=== PATIENT | female | born 1975 | race Native Hawaiian/Other Pacific Islander ===

== ENCOUNTER 2016-10-20 18:30 | Emergency (ER) | payer OTHER ==
[~2016-10-20] VITALS: Ht 170.2 cm; Wt 59.9 kg
[2016-10-20 19:14] VITALS: BP 148/96; TEMP 98.3
== END 2016-10-20 19:17 | disposition home or self-care (01) ==
LOC: ED 18:30
DX: L55.9 Sunburn, unspecified (principal); L29.8 Other pruritus
CPT/HCPCS: 99281

== ENCOUNTER → 2017-03-14 10:17 | Outpatient (CLI) | payer OTHER | END | disposition short-term general hospital (02) | LOC: AMB 10:17 | DX: M25.512 Pain in left shoulder (principal) ==

== ENCOUNTER 2018-10-26 18:25 | Emergency (ER) | payer OTHER ==
[~2018-10-26] VITALS: Ht 162.6 cm; Wt 58.1 kg
[2018-10-26 19:20] VITALS: BP 130/75; TEMP 97.6
== END 2018-10-26 19:20 | disposition home or self-care (01) ==
LOC: ED 18:25
DX: L73.8 Other specified follicular disorders (principal)
CPT/HCPCS: 99282

== ENCOUNTER 2019-05-05 02:35 | Emergency (ER) | payer OTHER ==
[~2019-05-05] VITALS: Ht 170.2 cm; Wt 60.3 kg
[2019-05-05 03:12] VITALS: BP 131/93; TEMP 98.7
== END 2019-05-05 03:12 | disposition home or self-care (01) ==
LOC: ED 02:35
DX: K08.89 Other specified disorders of teeth and supporting structures (principal)
CPT/HCPCS: 99282

== ENCOUNTER 2019-10-15 12:19 | Emergency (ER) | payer OTHER ==
[~2019-10-15] VITALS: Ht 170.2 cm; Wt 60.3 kg
[2019-10-15 12:35] VITALS: BP 130/83; TEMP 97.5
== END 2019-10-15 13:24 | disposition home or self-care (01) ==
LOC: ED 12:19
DX: R51 Headache (principal)
CPT/HCPCS: 99281

== ENCOUNTER 2021-12-15 14:27 | Emergency (ER) | payer OTHER ==
[~2021-12-15] VITALS: Ht 170.2 cm; Wt 60.3 kg
[2021-12-15 14:35] VITALS: BP 100/50; TEMP 98.1
== END 2021-12-15 16:20 | disposition home or self-care (01) ==
LOC: ED 14:27
PROC: 2W3QX1Z Immobilization of Right Lower Leg using Splint (ICD-10-PCS; principal; 2021-12-15)
DX: S96.811A Strain of other specified muscles and tendons at ankle and foot level, right foot, initial encounter (principal); S80.02XA Contusion of left knee, initial encounter; X50.1XXA Overexertion from prolonged static or awkward postures, initial encounter; W18.39XA Other fall on same level, initial encounter; Y93.E2 Activity, laundry; Y92.89 Other specified places as the place of occurrence of the external cause
CPT/HCPCS: 99283